=== PATIENT | male | born 1980 | race Caucasian/White ===

== ENCOUNTER 2016-12-06 21:34 | Emergency (ER) | payer OTHER ==
[~2016-12-06] VITALS: Ht 182.9 cm; Wt 78.0 kg
[2016-12-06 22:00] VITALS: BP 123/62; PULSE 78; RESP 20; TEMP 97.6; O2SAT 98
--- NOTE | 2016-12-06 22:09 | PD ---
HPI Chief Complaint: Oral / Dental Pain or Problem Time Seen by Provider: 21:49 Travel History International Travel<30 days: No Contact w/Intl Traveler<30days: No Traveled to known affect area: No History of Present Illness HPI 36-year-old male presents to the emergency department from retirement for evaluation of possible dislocated jaw. Patient states he was by himself and his cell. He yawned several times and felt a pop. He states since then his mandible has been stuck to the left and he cannot open his mouth. He is able to clench his jaw. He denies any trauma. Denies any significant pain. No other symptoms reported this time. PFSH Past Medical History Medical History: Denies Significant Hx Social History Alcohol Use: No Tobacco Use: No Substance Use: No Allergies-Medications (Allergen,Severity, Reaction): Coded Allergies: No Known Allergies (Unverified , 12/06/16) Reported Meds & Prescriptions Reported Meds & Active Scripts Active No Active Prescriptions or Reported Medications Review of Systems Except as stated in HPI: all other systems reviewed are Neg Physical Exam Narrative GENERAL: Well-nourished, well-developed male patient in no acute distress SKIN: Focused skin assessment warm/dry. HEAD: Normocephalic. Atraumatic. Patient has his mandible position to the left. Upon palpation, there is nothing obviously out of place or dislocated. Patient appears to be holding his mouth in this position. He is able to clench his teeth without difficulty. There are no signs of trauma. EYES: No scleral icterus. No injection or drainage. NECK: Supple, trachea midline. No JVD or lymphadenopathy. CARDIOVASCULAR: Regular rate and rhythm without murmurs, gallops, or rubs. RESPIRATORY: Breath sounds equal bilaterally. No accessory muscle use. GASTROINTESTINAL: Abdomen soft, non-tender, nondistended. MUSCULOSKELETAL: No cyanosis, or edema. BACK: Nontender without obvious deformity. No CVA tenderness. Data Data Last Documented VS Vital Signs Date Time Temp Pulse Resp B/P (MAP) Pulse Ox O2 Delivery O2 Flow Rate FiO2 12/06/16 22:24 85 20 135/94 (108) 98 Room Air 12/06/16 22:[address] Facial Bones W/O Iv Cont (12/06/16 ) [facility] Medical Decision Making Medical Screen Exam Complete: Yes Emergency Medical Condition: Yes Medical Record Reviewed: Yes Differential Diagnosis Normal examination versus jaw dislocation versus lockjaw versus TMJ Narrative Course 36-year-old male presents to the emergency department for evaluation of a possible jaw dislocation. Patient's history and physical is not consistent with a jaw dislocation. It appears to me that the patient is holding his mandible positioned to the left, out of alignment. Because he will not move it from this position, CT imaging is complete. It is without acute abnormality. I went in and reviewed the results with the patient who then began talking to me without any difficulty with a very well aligned jaw line. He will be discharged at this time. Diagnosis Primary Impression: Normal physical examination Referrals: Primary Care Physician Patient Instructions: General Instructions, Normal Exam (ED) Additional Instructions: Follow up with a primary care provider Return immediately with any acute worsening of symptoms Med/Other Pt SpecificInfo: No Change to Meds Scripts No Active Prescriptions or Reported Meds Disposition: [address] LAW ENFORCEMNT Condition: Stable Zita Hernández Dec 06, 2016 22:09
[2016-12-06 22:24] VITALS: BP 135/94; PULSE 85; RESP 20; O2SAT 98
--- NOTE | 2016-12-06 23:08 | RADRPT ---
EXAM DATE/TIME: 12/06/2016 22:45 [facility] COMPARISON: No previous studies available for comparison. INDICATIONS : Jaw pain. No known trauma. RADIATION DOSE: 36.57 CTDIvol (mGy) MEDICAL HISTORY : None SURGICAL HISTORY : None. ENCOUNTER: Initial ACUITY: 1 day PAIN SCORE: 2/10 LOCATION: Bilateral facial TECHNIQUE: Volumetric scanning of the facial bones was performed. Using automated exposure control and adjustme nt of the mA and/or kV according to patient size, radiation dose was kept as low as reasonably achiev able to obtain optimal diagnostic quality images. DICOM format image data is available electronicall y for review and comparison. FINDINGS: No acute fracture or dislocation. Paranasal sinuses are clear. Globes are intact. No abnormal soft ti ssue swelling identified within the face. CONCLUSION: 1. No acute findings. No acute mandible abnormalities. Shawn Alfonso MD on December 06, 2016 at 23:02 Board Certified Radiologist. This report was verified electronically.
== END 2016-12-06 23:24 ==
LOC: NEPD 21:34
DX: R68.84 Jaw pain (principal)
CPT/HCPCS: 70486; 99284